=== PATIENT | female | born 1955 | race Two or more races ===

== ENCOUNTER 2025-04-24 21:12 | Emergency (ER) | payer OTHER ==
[~2025-04-24] VITALS: Ht 154.9 cm; Wt 72.6 kg
[2025-04-24] MEDS ORDERED: METFORMIN HCL500 MG (21:31)
[2025-04-24] MEDS ORDERED: 0.9 % SODIUM CHLORIDE 1,000 ML IV SCH (21:45)
[2025-04-24] MEDS ORDERED: ACETAMINOPHEN 500 MG GEL..CAP PO ONE ×2 (21:52→22:00)
[2025-04-24 22:16] LABS: BASO % 0.1 % (0.1-1.2); HEMATOCRIT 37.1 % (34.1-44.9); HEMOGLOBIN 12.5 g/dL (11.2-15.7); LYMPH # 0.69 (1.18-3.74); LYMPH % 7.2 % (19.3-53.1); MEAN CORPUSCULAR HEMOGLOBIN 29.1 pg (25.6-32.2); MONO # 0.64 (0.24-0.82); MONO % 6.7 % (4.7-12.5); NEUT # 8.21 (1.56-6.13); NEUT % 85.4 % (34.0-71.1); PLATELET COUNT 168 K/uL (163-369); RED CELL DISTRIBUTION WIDTH 15.3 % (11.6-14.4)
[2025-04-24 22:32] LABS: COVID-19 AG NEGATIVE (NEGATIVE)
[2025-04-24 22:34] LABS: INFLUENZA A AG NEGATIVE (NEGATIVE)
[2025-04-24 22:44] LABS: ALBUMIN 3.8 gm/dL (3.4-5.0); BILIRUBIN TOTAL 0.58 mg/dL (0.3-1.2); CALCIUM 8.8 mg/dL (8.5-10.1); CREATININE SERUM 0.79 mg/dL (0.55-1.02); GFR 72.59; POTASSIUM 3.77 mEq/L (3.5-5.1); TOTAL PROTEIN 7.8 gm/dL (6.4-8.2)
== END 2025-04-25 02:56 | disposition left against medical advice (07) ==
LOC: ER 21:12
PROVIDERS: Emergency Medicine
DX: R41.0 Disorientation, unspecified (principal); Z20.822 Contact with and (suspected) exposure to COVID-19; E11.9 Type 2 diabetes mellitus without complications; Z79.84 Long term (current) use of oral hypoglycemic drugs; F32.A Depression, unspecified